=== PATIENT | male | born 1995 | race Caucasian/White ===

== ENCOUNTER 2022-04-11 09:08 | Emergency (ER) | payer OTHER, SELFPAY ==
[2022-04-11 09:43] VITALS: BP 105/52; PULSE 80; RESP 17; TEMP 35.9; O2SAT 100; BMI 25.8
[2022-04-11] MEDS: Lidocaine HCl 1%/Epi 1:100,000 20 ML VIAL 10 ML INFILTRATI (11:11)
--- NOTE | 2022-04-11 11:12 | ED_ITS ---
HPI - GI Bleed General Chief complaint: General Medical Stated complaint: hemorrhoids Time Seen by Provider: 04/11/22 10:33 Source: patient Mode of arrival: ambulatory Limitations: no limitations History of Present Illness MD complaint: blood on toilet paper (/hemorrhoids) Onset (ago): day(s) Pain Consistency: constant Severity: severe Relieving factors: none Exacerbating factors: bowel movement and movement Context: hemorrhoids Associated symptoms: denies other symptoms Treatments Prior to Arrival: OTC meds Related Data Previous Rx's Medication Instructions Recorded cephalexin 500 mg capsule 500 mg PO Q6H 10 Days #40 cap 04/11/22 docusate sodium 100 mg capsule 100 mg PO BID PRN #14 cap 04/11/22 (Colace) naproxen 500 mg tablet 500 mg PO BID PRN #14 tab 04/11/22 oxycodone 5 mg tablet 5 mg PO Q6H PRN #14 tab 04/11/22 Allergies Allergy/AdvReac Type Severity Reaction Status Date / Time From BENADRYL Allergy Unknown UNKOWN Uncoded 08/04/20 16:18 Review of Systems Review of Systems: Constitutional : No Weight loss, No Fever, No Chills, No Night Sweats, No Fatigue, No Malaise ENT/Mouth : No Hearing loss, No Ear Pain, No Nasal Congestion, No Sinus Pain, No Hoarseness, No sore throat, No Rhinorrhea, No Swallowing Difficulty Eyes: No Eye Pain, No Swelling, No Redness, No Foreign Body, No Discharge, No Vision Changes Cardiovascular : No Chest Pain, No SOB, No Dyspnea on Exertion, No Orthopnea, No Edema, No Palpitations Respiratory : No Cough, No Sputum, No Wheezing, No Smoke Exposure, No Dyspnea Gastrointestinal : No Nausea, No Vomiting, No Diarrhea, No Constipation, No abdominal Pain, No Hematochezia, No Melena, + hemorrhoids, Genitourinary : no irregular bleeding, No Dysuria, No Urinary Frequency, No Hematuria, No Urinary Incontinence, No Urgency, No Flank Pain, No Urinary Flow Changes, No Hesitancy Musculoskeletal : No joint pain, No Myalgias, No Joint Swelling Skin : No Skin Lesions, No rash Neuro : No Weakness, No Numbness, No Paresthesias, No Loss of Consciousness, No Dizziness, No Headache Psych : No Anxiety/Panic, No Depression, No SI/HI/AH/VH, No Social Issues, Heme/Lymph: No Bruising, No Bleeding,No Lymphadenopathy Endocrine : No Polyuria, No Polydipsia, No Temperature Intolerance Yes all other systems are reviewed and are negative [facility] Past Medical History Attestation statement: The following information was validated with the patient. Social History Social History Advance Directives: No Advance Directives Information Provided: No Physical Exam Vital Signs: Vital Signs: Last Vital Signs Temp 96.7 F L 04/11/22 09:43 Pulse 80 04/11/22 09:43 Resp 17 04/11/22 09:43 BP 105/52 L 04/11/22 09:43 Pulse Ox 100 04/11/22 09:43 BMI result Body Mass Index 25.8 vital signs have been reviewed as normal and appeared to be correct. Blood pressure normal Heart rate normal. Respiration rate normal. Temperature normal. Oxygen saturation normal. Appearance: Alert. Oriented X3. No acute d istress. Head: Normal external exam. Normocephalic. Atraumatic. Eyes: PERRLA. EOMI. Conjunctiva and sclera normal. Eyelids normal. ENT: Pharynx normal. Uvula midline. Moist mucous membranes. Neck: Normal inspection. Neck supple. FROM. CVS: Normal heart rate and rhythm. Respiratory: No respiratory distress. Painless inspiration. Rectal: Patient with thrombosed hemorrhoid noted. No foreign bodies or abscesses noted. Skin: Skin warm and dry. Normal skin color. Normal skin turgor. No rashes/lesions/lacerations noted. Extremities: Extremities exhibit normal range of motion. Extremities nontender. Neuro: Oriented X 3. No motor deficit. No sensory deficit. Reflexes normal. Normal steady gait. No focal neuro deficits noted. Vascular: + radial pulses/+ 2 distal pedal pulses/+2 dorsalis pedis b/l. Normal cap refill. No cyanosis noted to upper extremity nails and lower extremity toes nails. Course Course Course Narrative: Patient now status post hemorrhoidectomy with elliptical cut patient tolerated procedure well. No complications. Will DC home with antibiotics and symptomatic treatment instructions return if any new or worsening symptoms to follow up with general surgeon and PCP. Patient understands agrees with this plan. Discharge Plan Discharge Clinical Impression: External hemorrhoid, thrombosed Patient Disposition: Home, Self-Care Instructions: Hemorrhoids (ED) Prescriptions: New naproxen 500 mg tablet 500 mg PO BID PRN (Reason: pain) Qty: 14 0RF cephalexin 500 mg capsule 500 mg PO Q6H 10 Days Qty: 40 0RF oxycodone 5 mg tablet 5 mg PO Q6H PRN (Reason: pain) Qty: 14 0RF docusate sodium [Colace] 100 mg capsule 100 mg PO BID PRN (Reason: Constipation) Qty: 14 0RF Referrals: Yobany Velásquez MD [Physician] - 2 days Stand Alone Forms: Work/School Release
[2022-04-11] MEDS: Lidocaine 5 % Ointment 35 GM 1 APPL TOPICAL (11:55)
[2022-04-11] MEDS: Hydrocortisone 2.5 % Rectal Cr 30 GM TUBE 1 APPL PR (11:55)
== END 2022-04-11 11:59 | disposition home or self-care (01) ==
PROVIDERS: Emergency Provider Emergency Medicine Emergency Medical Services
DX: K64.5 Perianal venous thrombosis (principal); Z79.899 Other long term (current) drug therapy
CPT/HCPCS: 99283